=== PATIENT | male | born 1985 | race Caucasian/White ===

== ENCOUNTER 2020-07-29 16:01 | Emergency (ER) | payer SELFPAY ==
[2020-07-29 16:23] VITALS: BP 120/82; PULSE 72; RESP 16; TEMP 36.4; O2SAT 98; BMI 27.8
[2020-07-29 16:26] VITALS: RESP 15
--- NOTE | 2020-07-29 17:05 | ED_ITS ---
HPI - Dental/Oral General: Chief complaint: Dental/Oral Stated complaint: DENTAL ABSCESS Time Seen by Provider: 07/29/20 17:04 Source: patient Mode of arrival: ambulatory Limitations: no limitations History of Present Illness: HPI Narrative: Patient is a 34-year-old male who presents to ED today with a complaint of some swelling around a decayed left lower molar. Patient states he was seen on Thursday at [facility] and given a prescription for amoxicillin and hydrocodone for pain. He states the pain medication does seem to be working. He has noticed a small bump near the tooth that is causing him discomfort and was concerned. He states he has a dentist appointment on Thursday. He has not noticed any facial or neck swelling. Patient is still eating and drinking well. MD Complaint: tooth pain Teeth map: 1. decayed second molar Onset (ago): day(s) Relieving factors: prescription analgesics Exacerbating factors: nothing Context: history of dental caries Associated symptoms: Reports no associated symptoms; Denies ear or mastoid pain, fever(s) or odynophagia Review of Systems Const: Denies: fever(s) ENMT: Reports: dental pain; Denies: throat pain, uvular edema, enlarged tonsils, odynophagia, swelling of lips/tongue, bleeding gums, ear or mastoid pain, ear discharge, change in hearing, nasal discharge, nasal congestion, epistaxis, post nasal drip or sinus pain Card: Denies: chest pain Resp: Denies: dyspnea GI: Denies: nausea or vomiting Musc: Denies: neck pain Skin/Breast: Denies: rash Neuro: Denies: headache(s) PFS ED PFSH: Social History Smoking and tobacco status: never smoked Alcohol intake: never Adopted: No Caregiver/support person: No Lives independently: No Current occupational status: employed History of recent travel: No Sexually active: Yes Current gender identity: Male Physical Exam Const: COMMON NORMALS: no acute distress, average body habitus, patient oriented x3, no limitations, healthy appearing, alert and well nourished HENMT: COMMON NORMALS: normocephalic and atraumatic HEAD & SCALP: normal to inspection, normocephalic and atraumatic FACE & SINUS: normal facial exam and sinuses nontender MOUTH: Normal oral and palatal mucosa present, lip normal and tongue normal TEETH & GINGIVA: Yes poor dentition TEETH & GINGIVA IMAGES: 1. almost completely decayed second molar; has a small 2mm vesicle formation on the gingiva near the tooth that looks like a mucocele; there is no abscess formation THROAT: posterior oropharynx normal, tonsils normal and uvula midline; no uvular edema Neck/C-Spine: COMMON NORMALS: full ROM and no lymphadenopathy Neuro: COMMON NORMALS: patient oriented x3 SENSORIUM/ORIENTATION: Yes alert Course Vital Signs: Vital signs: Vital Signs Temperature 97.5 F L 07/29/20 16:23 Pulse Rate 72 07/29/20 16:23 Respiratory Rate 15 07/29/20 16:26 Blood Pressure 120/82 07/29/20 16:23 Pulse Oximetry 98 07/29/20 16:23 MDM - Dental/Oral MDM Narrative: Medical decision making narrative: Recommend pt continue taking his abx. Follow up with dentist on Thursday as scheduled. No drainable or formed abscess at this time. Discharge Plan Discharge Patient Disposition: Home Clinical Impression: Dental caries, Pain, dental Condition: Stable Prescriptions: No Action No Known Home Medications RF: 0 amoxicillin 500 mg capsule 500 mg PO Q8H 10 Days Qty: 30 RF: 0 Discharge Orders: Discharge ED (Routine); Ordered 07/29/20 Ordered By: Malka Gagnon Patient Instructions: Dental Caries (ED), Toothache (ED) Coding Level of Care Code ED Digital Producer for Manan Gomez
== END 2020-07-29 17:20 | disposition home or self-care (01) ==
PROVIDERS: Emergency Provider Physician Assistant
DX: K02.9 Dental caries, unspecified (principal)
CPT/HCPCS: 99281